=== PATIENT | female | born 1945 | race Caucasian/White ===

== ENCOUNTER 2016-09-15 09:12 | Inpatient (IN) | payer OTHER ==
[~2016-09-15 09:12] MED LIST: ALDACTONE50 MG PO; ASPIR-TRIN325 MG PO; BUSPIRONE HCL5 M1 PO; CALCIUM 600 +1 EA17 PO; CIPRO500 MG PO; COREG3.125 MG PO; COUMADIN1 MG PO; COUMADIN5 M1 PO; COUMADIN6 MG PO; CYMBALTA60 MG PO; DIGITEK125 MC1 PO; DILTIAZEM 24HR180 MG PO; DILTIAZEM ER240 M5 PO; FEROSUL325 M1 PO; FERREX PO; FLORASTOR250 MG PO; GARAMYCIN5 ML OP; GLUCOSE4 GM PO; HUMALOG100 U/ML SQ; HYDROCODON-ACE1 EA16 PO; ISOSORBIDE MONO60 M3 PO; KLOR-CON-1010 MEQ PO; LANTUS100 U/ML SC; LASIX20 M1 PO; LASIX40 MG PO; LEVEMIR100 UNITS/ SC; LISINOPRIL20 M1 PO; LOPRESSOR100 M1 PO; LOVENOX40 MG/0.1 SC; LOVENOX40 MG/0.4 SQ; MAGNESIUM OXID400 M1 PO; MELATONIN3 M4 PO; MYCOSTATIN15 GM TP; NORVASC5 M2 PO; NOVOLOG100 UNITS/ SC; NYSTATIN1 EAC1 MC; OXYGEN; PROTONIX40 M2 PO; SENOKOT8.8 MG/5 M PO; SIMVASTATIN40 MG PO; SWEEN 24255 GM TP; TOPROL XL50 MG PO; TUMS PO; ULTRACET TABLE1 EACH PO; ZOLOFT100 MG PO
[2016-09-15] MEDS ORDERED: LOVENOX40 MG/0.1 SC (10:04)
[2016-09-15 10:23] LABS: INR 0.9 INR (0.9-1.1); PROTHROMBIN TIME 10.9 SECONDS (9.0-13.6)
[2016-09-15] MEDS ORDERED: GLUCAGEN1 MG/1 ML IM (15:54)
[2016-09-15] MEDS ORDERED: DEXTROSE 525 GM/501 IV (15:55)
[2016-09-16] MEDS ORDERED: NORCO 5-325 TA1 EACH PO (14:04)
[2016-09-27] MEDS ORDERED: ULTRACET TABLE1 EACH PO (13:59)
[2016-09-27] MEDS ORDERED: BACITRACIN28.4 G2 TOP (14:00)
== END 2016-09-16 14:55 | disposition other institution (70) | DRG 577 ==
LOC: SHSC 09:12 → PACU 13:08 → BURN 14:50
PROVIDERS: Anesthesiology; Surgery; ADMIT Surgery
PROC: 0HRLX74 Replacement of Left Lower Leg Skin with Autologous Tissue Substitute, Partial Thickness, External Approach (ICD-10-PCS; principal; 2016-09-15)
DX: S81.802A Unspecified open wound, left lower leg, initial encounter (principal); I50.30 Unspecified diastolic (congestive) heart failure; L89.152 Pressure ulcer of sacral region, stage 2; I48.91 Unspecified atrial fibrillation; I11.0 Hypertensive heart disease with heart failure; E11.9 Type 2 diabetes mellitus without complications; F32.9 Major depressive disorder, single episode, unspecified; D64.9 Anemia, unspecified; E66.9 Obesity, unspecified; Z79.4 Long term (current) use of insulin; F60.9 Personality disorder, unspecified; G47.33 Obstructive sleep apnea (adult) (pediatric); Z68.34 Body mass index [BMI] 34.0-34.9, adult; I87.2 Venous insufficiency (chronic) (peripheral)
CPT/HCPCS: J0171; J1580; J1650; J1815; J3370

== ENCOUNTER 2016-09-29 12:00 | Day surgery (SDC) | payer OTHER, MEDICARE, BC ==
[~2016-09-29 12:00] MED LIST changes: +BACITRACIN28.4 G2 TOP; +DEXTROSE 525 GM/501 IV; +GLUCAGEN1 MG/1 ML IM; +NORCO 5-325 TA1 EACH PO
== END 2016-09-30 17:26 ==
LOC: SRG 12:00 → SHSB 12:02 → PACU 13:48 → SHSB 13:57 → PACU 14:55 → BURN 16:29
PROVIDERS: Surgery
PROC: 0HRKX74 Replacement of Right Lower Leg Skin with Autologous Tissue Substitute, Partial Thickness, External Approach (ICD-10-PCS; principal; 2016-09-29)
DX: S81.801A Unspecified open wound, right lower leg, initial encounter (principal); S81.802A Unspecified open wound, left lower leg, initial encounter; I87.8 Other specified disorders of veins; E66.01 Morbid (severe) obesity due to excess calories; I11.0 Hypertensive heart disease with heart failure; I50.30 Unspecified diastolic (congestive) heart failure; I48.91 Unspecified atrial fibrillation; I73.9 Peripheral vascular disease, unspecified; M15.9 Polyosteoarthritis, unspecified; E11.9 Type 2 diabetes mellitus without complications; F32.9 Major depressive disorder, single episode, unspecified; G47.30 Sleep apnea, unspecified; K21.9 Gastro-esophageal reflux disease without esophagitis; Z79.01 Long term (current) use of anticoagulants; Z79.4 Long term (current) use of insulin; Z79.899 Other long term (current) drug therapy; Z88.8 Allergy status to other drugs, medicaments and biological substances; Z86.14 Personal history of Methicillin resistant Staphylococcus aureus infection; Z98.890 Other specified postprocedural states; X58.XXXA Exposure to other specified factors, initial encounter
CPT/HCPCS: J0171; J1580; J1815; J2270; J3010; J3370